=== PATIENT | male | born 1980 | race Caucasian/White ===

== ENCOUNTER → 2023-01-26 16:46 | Outpatient (CLI) | payer BC, SELFPAY ==
--- NOTE | 2023-01-26 | DI.MRI.S_ITS ---
PROCEDURE: MR ANKLE LT WO/W CON INDICATIONS: Pain in left ankle and joints of left foot TECHNIQUE: Noncontrast sagittal T1 spin echo and T2 fast spin echo with fat saturation, axial proton density fast spin echo and T2 fast spin echo with fat saturation, axial T1 spin echo with fat saturation, coronal T1 spin echo and T2 fast spin echo with fat saturation through the ankle/hindfoot. Post-contrast axial, coronal, and sagittal T1 spin echo with fat saturation through the ankle/hindfoot. COMPARISON: None. FINDINGS: Image quality: Excellent. Bones and joints: There is abnormal periarticular bone marrow edema and enhancement along the tibiotalar and subtalar joints within the distal tibia, talus, and calcaneus. There are small tibiotalar and subtalar joint effusions with synovial thickening and enhancement. Mild periarticular soft tissue edema and enhancement also demonstrated. The findings are highly suspicious for septic arthritis and osteomyelitis. There is focal subchondral edema within the distal tibia along the medial ankle mortise likely secondary to overlying chondral degeneration. No acute fracture or dislocation. There is a surgical screw tract within the lateral talus. Medial structures: The posterior tibialis, flexor digitorum longus, and flexor hallucis longus tendons are intact with minimal tenosynovial fluid. The posterior tibial neurovascular bundle appears normal within the tarsal tunnel, without extrinsic mass effect. The deltoid ligament is thickened and intermediate signal with mild periligamentous edema consistent with sequelae of a mild sprain. The spring ligament components appear intact. Lateral structures: There are postsurgical changes consistent with prior surgical repair of anterior talofibular ligament. There is scar tissue along the expected course of the anterior tibiotalar ligament without discrete intact low signal fibers. The calcaneofibular ligament is thickened and attenuated in signal consistent with a moderate to severe sprain. The posterior talofibular ligament is also thickened and attenuated in signal compatible with a moderate to severe sprain. More superiorly, the anterior and posterior tibiofibular ligaments appear thickened consistent with sequelae of prior mild sprains. The intermalleolar ligament appears intact. The tibiofibular syndesmosis is normal in width at 2 mm or less. There is tendinopathy of the peroneus longus and brevis tendons with mild tenosynovial fluid and edema along their course. Mild longitudinal split tearing demonstrated within the peroneus longus inferior to the lateral malleolus. The peroneus brevis demonstrates flattening inferior to the lateral malleolus. Adjacent bony peroneal tubercle demonstrates mild edema and enhancement which may reflect reactive changes. The sinus tarsi demonstrates mild edema and enhancement with effacement of the normal fatty signal consistent with inflammatory changes or sequelae of ligamentous sprains. The calcaneonavicular and calcaneocuboid components of the bifurcate ligament appear intact. The dorsal calcaneocuboid ligament appears intact. Anterior structures: The tibialis anterior, extensor hallucis longus, and extensor digitorum longus tendons appear intact. The dorsal talonavicular ligament appears intact. Posterior and plantar structures: Achilles tendon is intact. There is trace fluid in the retrocalcaneal bursa. Medial and lateral bands of the plantar fascia are of normal thickness. No abductor digiti quinti muscle atrophy to suggest Mora neuropathy. There is a localized region of subcutaneous edema and enhancement within the plantar aspect of the hindfoot without a discrete overlying ulcer or peripheral enhancement to suggest an abscess. IMPRESSION: 1. Abnormal periarticular bone marrow edema and enhancement as well as small joint effusions within the tibiotalar and subtalar joints. There is associated synovial thickening enhancement as well as periarticular edema and enhancement. The findings are highly suspicious for septic arthritis and osteomyelitis. 2. Postsurgical changes status post prior repair of the anterior talofibular ligament with suspected retear and associated scar tissue. Sequelae of moderate to severe sprains of the calcaneofibular and posterior talofibular ligaments demonstrated. 3. Mild sprains of the deltoid ligament. 4. Mild tenosynovitis along the peroneal tendons with mild longitudinal partial tearing of the peroneus longus and flattening of the peroneus brevis. 5. Localized region of subcutaneous edema and enhancement in the plantar soft tissues of the hindfoot is nonspecific but suggestive of localized infection versus reactive changes. No associated abscess. Dictated by: Morgan Oakes M.D. on 01/26/2023 at 20:09 Approved by: Morgan Oakes M.D. on 01/26/2023 at 20:26
== END ==
PROVIDERS: Referring Provider Orthopaedic Surgery Foot and Ankle Surgery; Visit Provider Orthopaedic Surgery Foot and Ankle Surgery
DX: S93.422A Sprain of deltoid ligament of left ankle, initial encounter (principal); S96.812A Strain of other specified muscles and tendons at ankle and foot level, left foot, initial encounter; M65.872 Other synovitis and tenosynovitis, left ankle and foot; M25.572 Pain in left ankle and joints of left foot; M25.472 Effusion, left ankle; S93.412S Sprain of calcaneofibular ligament of left ankle, sequela; S93.492S Sprain of other ligament of left ankle, sequela
CPT/HCPCS: 73723; A9579

== ENCOUNTER → 2023-02-03 11:19 | Outpatient (CLI) | payer BC, SELFPAY | PROVIDERS: Referring Provider Orthopaedic Surgery Foot and Ankle Surgery; Visit Provider Surgery | DX: S91.002A Unspecified open wound, left ankle, initial encounter (principal); T81.89XA Other complications of procedures, not elsewhere classified, initial encounter; M86.172 Other acute osteomyelitis, left ankle and foot; R60.0 Localized edema | CPT/HCPCS: 11042; 97605; 99204; 99213 ==

== ENCOUNTER → 2023-02-05 11:21 | Outpatient (CLI) | payer BC, SELFPAY | PROVIDERS: Referring Provider Orthopaedic Surgery Foot and Ankle Surgery; Visit Provider Physician Assistant | DX: S91.002A Unspecified open wound, left ankle, initial encounter (principal); R60.0 Localized edema; M25.572 Pain in left ankle and joints of left foot | CPT/HCPCS: 97605 ==

== ENCOUNTER → 2023-02-08 09:22 | Outpatient (CLI) | payer BC, SELFPAY | PROVIDERS: Referring Provider Orthopaedic Surgery Foot and Ankle Surgery; Visit Provider Surgery | DX: S91.002A Unspecified open wound, left ankle, initial encounter (principal) | CPT/HCPCS: 97605; 99212 ==

== ENCOUNTER → 2023-02-12 09:51 | Outpatient (CLI) | payer BC, SELFPAY | PROVIDERS: Referring Provider Orthopaedic Surgery Foot and Ankle Surgery; Visit Provider Physician Assistant | DX: S91.002A Unspecified open wound, left ankle, initial encounter (principal); R60.0 Localized edema; M25.572 Pain in left ankle and joints of left foot | CPT/HCPCS: 97605 ==

== ENCOUNTER → 2023-02-15 08:41 | Outpatient (CLI) | payer BC, SELFPAY | PROVIDERS: Referring Provider Orthopaedic Surgery Foot and Ankle Surgery; Visit Provider Surgery | DX: S91.002A Unspecified open wound, left ankle, initial encounter (principal); T81.89XA Other complications of procedures, not elsewhere classified, initial encounter; M25.572 Pain in left ankle and joints of left foot | CPT/HCPCS: 11042; 97605 ==

== ENCOUNTER → 2023-02-19 09:13 | Outpatient (CLI) | payer BC, SELFPAY | PROVIDERS: Referring Provider Orthopaedic Surgery Foot and Ankle Surgery; Visit Provider Physician Assistant | DX: S91.002A Unspecified open wound, left ankle, initial encounter (principal); R60.0 Localized edema; M25.572 Pain in left ankle and joints of left foot | CPT/HCPCS: 97605 ==

== ENCOUNTER → 2023-02-22 09:22 | Outpatient (CLI) | payer BC, SELFPAY | PROVIDERS: Referring Provider Orthopaedic Surgery Foot and Ankle Surgery; Visit Provider Surgery | DX: S91.002A Unspecified open wound, left ankle, initial encounter (principal); T81.89XA Other complications of procedures, not elsewhere classified, initial encounter; M86.172 Other acute osteomyelitis, left ankle and foot | CPT/HCPCS: 11042; 97605 ==

== ENCOUNTER → 2023-02-24 09:38 | Outpatient (CLI) | payer BC, SELFPAY | PROVIDERS: Referring Provider Orthopaedic Surgery Foot and Ankle Surgery; Visit Provider Surgery | DX: S91.002A Unspecified open wound, left ankle, initial encounter (principal); R60.0 Localized edema | CPT/HCPCS: 97605 ==

== ENCOUNTER → 2023-02-26 08:44 | Outpatient (CLI) | payer BC, SELFPAY | PROVIDERS: Referring Provider Orthopaedic Surgery Foot and Ankle Surgery; Visit Provider Physician Assistant | DX: S91.002A Unspecified open wound, left ankle, initial encounter (principal) | CPT/HCPCS: 97605 ==

== ENCOUNTER → 2023-03-01 09:38 | Outpatient (CLI) | payer BC, SELFPAY | PROVIDERS: Visit Provider Surgery | DX: M86.172 Other acute osteomyelitis, left ankle and foot (principal); S91.002A Unspecified open wound, left ankle, initial encounter; T81.89XA Other complications of procedures, not elsewhere classified, initial encounter; R60.0 Localized edema | CPT/HCPCS: 11042; 97605; 99213 ==

== ENCOUNTER → 2023-03-04 08:57 | Outpatient (CLI) | payer BC, SELFPAY | PROVIDERS: Visit Provider Surgery | DX: S91.002A Unspecified open wound, left ankle, initial encounter (principal) | CPT/HCPCS: 97605 ==

== ENCOUNTER → 2023-03-15 08:39 | Outpatient (CLI) | payer BC, SELFPAY | PROVIDERS: Referring Provider Orthopaedic Surgery Foot and Ankle Surgery; Visit Provider Surgery | DX: M86.172 Other acute osteomyelitis, left ankle and foot (principal); S91.002A Unspecified open wound, left ankle, initial encounter; T81.89XA Other complications of procedures, not elsewhere classified, initial encounter; R60.0 Localized edema | CPT/HCPCS: 11042 ==

== ENCOUNTER → 2023-03-23 08:44 | Outpatient (CLI) | payer BC, SELFPAY | PROVIDERS: Referring Provider Orthopaedic Surgery Foot and Ankle Surgery; Visit Provider Surgery | DX: M86.172 Other acute osteomyelitis, left ankle and foot (principal); S91.002A Unspecified open wound, left ankle, initial encounter; T81.31XA Disruption of external operation (surgical) wound, not elsewhere classified, initial encounter | CPT/HCPCS: 11042; 97605 ==

== ENCOUNTER → 2023-03-26 08:58 | Outpatient (CLI) | payer BC, SELFPAY | PROVIDERS: Referring Provider Orthopaedic Surgery Foot and Ankle Surgery; Visit Provider Physician Assistant | DX: S91.002A Unspecified open wound, left ankle, initial encounter (principal); R60.0 Localized edema | CPT/HCPCS: 97605 ==

== ENCOUNTER → 2023-03-29 08:59 | Outpatient (CLI) | payer BC, SELFPAY | PROVIDERS: Referring Provider Orthopaedic Surgery Foot and Ankle Surgery; Visit Provider Surgery | DX: M86.172 Other acute osteomyelitis, left ankle and foot (principal); S91.002A Unspecified open wound, left ankle, initial encounter; T81.89XA Other complications of procedures, not elsewhere classified, initial encounter | CPT/HCPCS: 11042; 99213 ==

== ENCOUNTER → 2023-04-02 09:16 | Outpatient (CLI) | payer BC, SELFPAY | PROVIDERS: Referring Provider Orthopaedic Surgery Foot and Ankle Surgery; Visit Provider Physician Assistant | DX: S91.002A Unspecified open wound, left ankle, initial encounter (principal); R60.0 Localized edema | CPT/HCPCS: 99213 ==

== ENCOUNTER → 2023-04-05 08:44 | Outpatient (CLI) | payer BC, SELFPAY | PROVIDERS: Referring Provider Orthopaedic Surgery Foot and Ankle Surgery; Visit Provider Surgery | DX: T81.89XA Other complications of procedures, not elsewhere classified, initial encounter (principal); S91.002A Unspecified open wound, left ankle, initial encounter; R60.0 Localized edema; T81.31XA Disruption of external operation (surgical) wound, not elsewhere classified, initial encounter | CPT/HCPCS: 11042 ==

== ENCOUNTER → 2023-04-12 08:44 | Outpatient (CLI) | payer BC, SELFPAY | PROVIDERS: Referring Provider Orthopaedic Surgery Foot and Ankle Surgery; Visit Provider Surgery | DX: T81.89XA Other complications of procedures, not elsewhere classified, initial encounter (principal); S91.002A Unspecified open wound, left ankle, initial encounter; M86.172 Other acute osteomyelitis, left ankle and foot; R60.0 Localized edema; L98.8 Other specified disorders of the skin and subcutaneous tissue | CPT/HCPCS: 11042 ==

== ENCOUNTER → 2023-04-19 08:37 | Outpatient (CLI) | payer BC, SELFPAY | PROVIDERS: Referring Provider Orthopaedic Surgery Foot and Ankle Surgery; Visit Provider Surgery | DX: T81.89XA Other complications of procedures, not elsewhere classified, initial encounter (principal); S91.002A Unspecified open wound, left ankle, initial encounter; M86.172 Other acute osteomyelitis, left ankle and foot; R60.0 Localized edema | CPT/HCPCS: 11042 ==

== ENCOUNTER → 2023-04-26 09:03 | Outpatient (CLI) | payer BC, SELFPAY | PROVIDERS: Referring Provider Orthopaedic Surgery Foot and Ankle Surgery; Visit Provider Surgery | DX: T81.31XA Disruption of external operation (surgical) wound, not elsewhere classified, initial encounter (principal); S91.002A Unspecified open wound, left ankle, initial encounter; M86.172 Other acute osteomyelitis, left ankle and foot; R60.0 Localized edema | CPT/HCPCS: 11042; 99212; 99213 ==

== ENCOUNTER → 2023-05-03 08:45 | Outpatient (CLI) | payer BC, SELFPAY | PROVIDERS: Referring Provider Orthopaedic Surgery Foot and Ankle Surgery; Visit Provider Surgery | DX: M86.172 Other acute osteomyelitis, left ankle and foot (principal); S91.002A Unspecified open wound, left ankle, initial encounter; T81.89XA Other complications of procedures, not elsewhere classified, initial encounter; R60.0 Localized edema | CPT/HCPCS: 11042; 99213 ==

== ENCOUNTER → 2023-05-10 09:01 | Outpatient (CLI) | payer BC, SELFPAY | PROVIDERS: Referring Provider Orthopaedic Surgery Foot and Ankle Surgery; Visit Provider Surgery | DX: T87.81 Dehiscence of amputation stump (principal); S91.002A Unspecified open wound, left ankle, initial encounter; M86.172 Other acute osteomyelitis, left ankle and foot; R21 Rash and other nonspecific skin eruption | CPT/HCPCS: 11042 ==

== ENCOUNTER → 2023-05-17 08:33 | Outpatient (CLI) | payer BC, SELFPAY | PROVIDERS: Referring Provider Orthopaedic Surgery Foot and Ankle Surgery; Visit Provider Surgery | DX: S91.002A Unspecified open wound, left ankle, initial encounter (principal); T81.89XA Other complications of procedures, not elsewhere classified, initial encounter; M86.172 Other acute osteomyelitis, left ankle and foot; R21 Rash and other nonspecific skin eruption; R60.0 Localized edema | CPT/HCPCS: 11042 ==

== ENCOUNTER → 2023-05-24 09:23 | Outpatient (CLI) | payer BC, SELFPAY | PROVIDERS: Referring Provider Orthopaedic Surgery Foot and Ankle Surgery; Visit Provider Surgery | DX: T81.31XA Disruption of external operation (surgical) wound, not elsewhere classified, initial encounter (principal); M86.172 Other acute osteomyelitis, left ankle and foot; S91.002A Unspecified open wound, left ankle, initial encounter; L98.8 Other specified disorders of the skin and subcutaneous tissue; R21 Rash and other nonspecific skin eruption; R60.0 Localized edema | CPT/HCPCS: 11042; 97597; 99213 ==

== ENCOUNTER → 2023-05-31 08:32 | Outpatient (CLI) | payer BC, SELFPAY | PROVIDERS: Referring Provider Surgery; Visit Provider Surgery | DX: S91.002A Unspecified open wound, left ankle, initial encounter (principal); M86.172 Other acute osteomyelitis, left ankle and foot; R21 Rash and other nonspecific skin eruption | CPT/HCPCS: 11042 ==

== ENCOUNTER → 2023-06-07 08:38 | Outpatient (CLI) | payer BC, SELFPAY | PROVIDERS: Referring Provider Orthopaedic Surgery Foot and Ankle Surgery; Visit Provider Surgery | DX: S91.002A Unspecified open wound, left ankle, initial encounter (principal); R21 Rash and other nonspecific skin eruption; R60.0 Localized edema; M86.172 Other acute osteomyelitis, left ankle and foot | CPT/HCPCS: 99212; 99213 ==

== ENCOUNTER → 2023-06-14 08:50 | Outpatient (CLI) | payer BC, SELFPAY | PROVIDERS: Referring Provider Orthopaedic Surgery Foot and Ankle Surgery; Visit Provider Physician Assistant | DX: M86.172 Other acute osteomyelitis, left ankle and foot (principal); T81.31XD Disruption of external operation (surgical) wound, not elsewhere classified, subsequent encounter; R21 Rash and other nonspecific skin eruption; B35.4 Tinea corporis; B35.1 Tinea unguium | CPT/HCPCS: 11042; 99212; 99214 ==

== ENCOUNTER → 2023-06-21 11:45 | Outpatient (CLI) | payer BC, SELFPAY | PROVIDERS: Referring Provider Orthopaedic Surgery Foot and Ankle Surgery; Visit Provider Surgery | DX: S91.002A Unspecified open wound, left ankle, initial encounter (principal); R21 Rash and other nonspecific skin eruption; R60.0 Localized edema | CPT/HCPCS: 11042; 99211; 99213 ==

== ENCOUNTER → 2023-06-30 09:01 | Outpatient (CLI) | payer BC, SELFPAY | PROVIDERS: Referring Provider Orthopaedic Surgery Foot and Ankle Surgery; Visit Provider Surgery | DX: S91.002A Unspecified open wound, left ankle, initial encounter (principal); R21 Rash and other nonspecific skin eruption; R60.0 Localized edema | CPT/HCPCS: 11042; 87070; 87075; 87077; 87147; 87186; 87205 ==

== ENCOUNTER → 2023-07-05 11:53 | Outpatient (CLI) | payer BC, SELFPAY | PROVIDERS: Referring Provider Orthopaedic Surgery Foot and Ankle Surgery; Visit Provider Surgery | DX: M86.172 Other acute osteomyelitis, left ankle and foot (principal); T81.31XD Disruption of external operation (surgical) wound, not elsewhere classified, subsequent encounter; R21 Rash and other nonspecific skin eruption; B35.4 Tinea corporis; B35.1 Tinea unguium; S91.002A Unspecified open wound, left ankle, initial encounter | CPT/HCPCS: 99213 ==

== ENCOUNTER → 2023-07-15 08:53 | Outpatient (CLI) | payer BC, SELFPAY | LOC: WC 08:57 | PROVIDERS: Referring Provider Orthopaedic Surgery Foot and Ankle Surgery; Visit Provider Surgery | DX: S91.002A Unspecified open wound, left ankle, initial encounter (principal); L53.9 Erythematous condition, unspecified; R21 Rash and other nonspecific skin eruption | CPT/HCPCS: 99212 ==

== ENCOUNTER → 2023-07-22 09:07 | Outpatient (CLI) | payer BC, SELFPAY | LOC: WC 09:07 | PROVIDERS: Visit Provider Surgery | DX: S91.001D Unspecified open wound, right ankle, subsequent encounter (principal); R60.0 Localized edema; R21 Rash and other nonspecific skin eruption; R23.4 Changes in skin texture | CPT/HCPCS: 99212; 99213 ==

== ENCOUNTER → 2023-08-12 10:15 | Outpatient (CLI) | payer BC, SELFPAY | LOC: WC 10:15 | PROVIDERS: Visit Provider Surgery | DX: S91.001D Unspecified open wound, right ankle, subsequent encounter (principal) | CPT/HCPCS: 99212; 99213 ==